=== PATIENT | female | born 1930 | race Caucasian/White ===

== ENCOUNTER 2016-09-05 12:14 | Emergency (ER) | payer OTHER ==
[~2016-09-05] VITALS: Ht 154.9 cm; Wt 49.9 kg
[~2016-09-05 12:14] MED LIST: AMITRIPTYLINE H10 MG PO; AMITRIPTYLINE H25 M2; AMLODIPINE BESYL5 M1 PO; HYDROCODON-ACE1 EAC2 PO; HYDRODIURIL 112.5 M1 PO; LOVASTATIN40 MG PO; METOPROLOL SUCC25 MG PO; MIRTAZAPINE15 M3; NORVASC 5MG TAB5 MG PO; PERCOCET 325 MG1 TA2 PO; PREDNISONE10 M2 PO
[2016-09-05 12:23] VITALS: BP 104/63
--- NOTE | 2016-09-05 13:16 | ED HAND/WRIST INJURY COMPLAINT ---
History of Present Illness General Chief Complaint: Hand or Wrist Injury Stated Complaint: R WRIST SWELLING, HX OF ARTHRITIS Source: patient Exam Limitations: no limitations Vital Signs & Intake/Output Vital Signs & Intake/Output Vital Signs Date Time Temp Pulse Resp B/P B/P Pulse O2 O2 Flow FiO2 Mean Ox Delivery Rate 09/05 1223 97.3 86 16 104/63 94 Room Air ED Intake and Output 09/06 0000 09/05 1200 Intake Total Output Total Balance Patient 110 lb Weight Weight Reported by Patient Measurement Method Allergies Coded Allergies: Penicillins (Severe, TONGUE SWELLING 01/27/16) alendronate sodium (From FOSAMAX) (GI INTOLERANCE 01/27/16) Reconcile Medications Amitriptyline HCl (Unknown Strength) TABLET (Unknown Dose) UNKNOWN (Reported) Amlodipine Besylate 5 MG TABLET 1 TAB PO DAILY BP (Reported) Hydrocodone/Acetaminophen (Hydrocodon-Acetaminophen 5-325) 1 EACH TABLET 1 TAB PO Q6H PRN PAIN (Reported) Lovastatin 40 MG TABLET 1 TAB PO DAILY CHOLESTEROL (Reported) Metoprolol Succinate 25 MG TAB.ER.24H 1 TAB PO DAILY HEART (Reported) Mirtazapine (Unknown Strength) TAB.RAPDIS (Unknown Dose) UNKNOWN (Reported) Prednisone 10 MG TABLET 1 TAB PO DAILY GOUT TAKE 4 TABS FOR 3 DAYS THEN TAKE 3 TABS FOR 3 DAYS THEN TAKE 2 TABS FOR 3 DAYS THEN TAKE 1 TAB FOR 3 DAYS Prednisone 10 MG TABLET 1 TAB PO TID arthritis start tomorrow Triage Note: PT TO ED FOR W WRIST SWELLING/PAIN R/T ARTHRITIS. HX OF SAME "WAS GIVEN A STERIOD AND IT CLEARED UP." SWELLING NOTED. R RADIAL PULSE WNL. R WRIST IS TENDER WITH INTERMITTENT SHARP PAIN. Triage Nurses Notes Reviewed? yes Occurred: last week Duration: day(s): (5) Timing: recent history Injury Environment: home Severity: moderate Severity Numbers: 8 Pain/Injury Location: Right: Wrist. Context: no injury Method of Injury: unknown Modifying Factors: Improves With: immobilization. Worsens With: movement. Associated Symptoms: swelling, redness HPI: Patient is an 86-year-old female with history of arthritis presenting to the emergency department with chief complaint of worsening swelling and pain to the right wrist is benign. Past 5 days. Denies any falls or injury. No numbness or tingling. Patient reports that she gets these episodes a couple times a year and it usually resolves with prednisone. Denies any fevers or chills. No numbness or tingling. Denies any rashes. No other areas of swelling or redness. She reports that every time she gets these episodes it happens in the right wrist. She does not drink alcohol. Patient denies any new exposures. (ROSANNA REARDON) Past History Travel History Traveled to [place] past 21 day No Medical History Any Pertinent Medical History? see below for history Neurological: NONE EENT: NONE Cardiovascular: hypertension, hyperlipidemia Respiratory: NONE Gastrointestinal: NONE Hepatic: NONE Renal: NONE Musculoskeletal: osteoarthritis, L ANKLE FX WRIST FX Psychiatric: depression Endocrine: NONE Blood Disorders: NONE Cancer(s): NONE INDEPENDENT SALES REPRESENTATIVE/Reproductive: NONE History of MRSA: No History of VRE: No History of CDIFF: No Surgical History Surgical History: non-contributory Psychosocial History Who do you live with Family Services at Home None What is your primary language Indian Tobacco Use: Refused to answer Family History Hx Contributory? No (ROSANNA REARDON) Review of Systems Review of Systems Constitutional: Reports: no symptoms. Comments Review of systems: See HPI, All other systems negative. Constitutional, no chills fever or weight loss HEENT: No visual changes no sore throat no congestion Cardiovascular: No chest pain ,palpitation , orthopnea or ankle swelling Skin, no jaundice Respiratory: No dyspnea cough sputum or hemoptysis GI: No nausea no vomiting : No dysuria No hematuria Muscle skeletal: no back pain, no neck pain, Neurologic: No numbness no confusion Psych: No stress anxiety or depression,. Heme/endocrine: No bruising no bleeding no polyuria or polydipsia Immunology: No splenectomy or history of AIDS (ROSANNA REARDON) Physical Exam Physical Exam General Appearance: well developed/nourished, no apparent distress, alert, awake , comfortable Hand Left: normal inspection, normal range of motion Hand Right: limited range of motion Comments: Well-developed well-nourished person in no acute distress HEENT:Pupils equally round and reactive to light and accommodation. Nose is atraumatic. Neck: Normal inspection Cardiovascular: Regular rate and rhythms no murmurs rubs or gallops, normal JVP Respiratory: Chest nontender. No respiratory distress.breath sounds clear to auscultation bilaterally Extremity: Tender to palpation over the right distal radius, tender to palpation of the right distal ulna, limited range of motion of right wrist secondary to pain. Capillary refills intact in right upper extremity. Radial pulses are 2+ bilaterally. Mildly warm to palpation over the right wrist and right hand. Extensive arthritic changes noted in the digits of the right hand. Neuro: Alert oriented x3, motor sensory normal Skin: Mild erythema noted over the right wrist otherwise No appreciable rash on exposed skin, skin is warm and dry. Psych: Mood and affect is normal, memory and judgment is normal. (ARLENE DAVIS,ROSANNA) Progress Differential Diagnosis: cellulitis, contusion, compartment syndrome, gout, septic arthritis, sprain Plan of Care: Orders Procedure Date/time Status Durable Medical Equipment 09/05 1415 Active Diagnostic Imaging: Viewed by Me: Radiology Read. Discussed w/RAD: Radiology Read. Radiology Impression: PATIENT: MACRINA HERNÁNDEZ PRESENT AGE: 86 PATIENT ACCOUNT NO: [id number] : 32 LOCATION: [facility] ORDERING PHYSICIAN: ROSANNA DAVIS SERVICE DATE: 09/05/16 EXAM TYPE: RAD - XRY-WRIST COMPLETE-RIGHT EXAMINATION: XR WRIST, RIGHT CLINICAL INFORMATION: Pain and swelling. Evaluate for fracture. COMPARISON: None TECHNIQUE: Right wrist, 4 views FINDINGS: Bone density appears diffusely decreased. Soft tissue swelling around the wrist. Chondrocalcinosis of the wrist, including involvement of the triangular fibrocartilage and lunatotriquetral ligament. There is marked joint space narrowing and subarticular sclerosis at the lunatocapitate joint and at the articulation of the capitate with the proximal pole of the scaphoid. There is [id number] osteoarthritis of the triscaphe joint and first carpometacarpal joint. The lateral radiograph shows dorsal tilt of the lunate, but the scapholunate angle is approximately 60 degrees which is in the normal range. IMPRESSION: 1. No acute fracture within the distal forearm or wrist. 2. 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 Comments: 09/05/2016 1:41:45 PM on arrival patient is afebrile no acute distress. She does have some edema appreciated at the distal right radius and limited range of motion of the right wrist with erythema. She gets 2 episodes a year. Likely more of a gouty arthritic attack than septic arthritis. She'll go for x-ray. Patient medicated with by mouth prednisone. Patient form the maxillary results. Given a copy. She'll follow-up with orthopedics. Placed in splint. (ARLENE DAVIS,ROSANNA) Departure Departure Time of Disposition: 1410 Disposition: HOME OR SELF CARE Condition: Stable Clinical Impression Primary Impression: Gouty arthritis Referrals: FELICITA WILEY,GRACY Alcazar (PCP/Family) DAVID WILEY,JAZMIN Thrasher Additional Instructions: Follow-up with orthopedics, make an appointment. Take prednisone as prescribed. Wear brace for support. Return for worsening symptoms or concerns. Follow-up with your primary care physician as well as a to make sure your symptoms are improving. PATIENT: MACRINA HERNÁNDEZ PRESENT AGE: 86 PATIENT ACCOUNT NO: [id number] : 32 LOCATION: [facility] ORDERING PHYSICIAN: ROSANNA DAVIS SERVICE DATE: 09/05/16 EXAM TYPE: RAD - XRY-WRIST COMPLETE-RIGHT EXAMINATION: XR WRIST, RIGHT CLINICAL INFORMATION: Pain and swelling. Evaluate for fracture. COMPARISON: None TECHNIQUE: Right wrist, 4 views FINDINGS: Bone density appears diffusely decreased. Soft tissue swelling around the wrist. Chondrocalcinosis of the wrist, including involvement of the triangular fibrocartilage and lunatotriquetral ligament. There is marked joint space narrowing and subarticular sclerosis at the lunatocapitate joint and at the articulation of the capitate with the proximal pole of the scaphoid. There is [id number] osteoarthritis of the triscaphe joint and first carpometacarpal joint. The lateral radiograph shows dorsal tilt of the lunate, but the scapholunate angle is approximately 60 degrees which is in the normal range. IMPRESSION: 1. No acute fracture within the distal forearm or wrist. 2. 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 Departure Forms: Customer Survey General Discharge Information Prescriptions: Current Visit Scripts Prednisone 1 TAB PO TID #9 TAB start tomorrow (ARLENE DAVIS,ROSANNA) Procedures Splinting Location: right wrist Manual Alignment Performed: No Pre-Made Type: velcro Splint: wrist Splint Applied By: splint applied by other (nursing) Pre-Proc Neuro Vasc Exam: normal Post-Proc Neuro Vasc Exam: normal Progress: Tolerated procedure well. (ARLENE DAVIS,ROSANNA)
--- NOTE | 2016-09-05 14:08 | RADIOLOGY REPORT ---
EXAMINATION: XR WRIST, RIGHT CLINICAL INFORMATION: Pain and swelling. Evaluate for fracture. COMPARISON: None TECHNIQUE: Right wrist, 4 views FINDINGS: Bone density appears diffusely decreased. Soft tissue swelling around the wrist. Chondrocalcinosis of the wrist, including involvement of the triangular fibrocartilage and lunatotriquetral ligament. There is marked joint space narrowing and subarticular sclerosis at the lunatocapitate joint and at the articulation of the capitate with the proximal pole of the scaphoid. There is [id number]-[id number] osteoarthritis of the triscaphe joint and first carpometacarpal joint. The lateral radiograph shows dorsal tilt of the lunate, but the scapholunate angle is approximately 60 degrees which is in the normal range. IMPRESSION: 1. No acute fracture within the distal forearm or wrist. 2. 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
[2016-09-05] MEDS ORDERED: PREDNISONE10 M2 PO (14:13)
== END 2016-09-05 14:11 ==
LOC: ERH 12:14
DX: M10.9 Gout, unspecified (principal)
CPT/HCPCS: 73110-RT